=== PATIENT | female | born 1975 | race Caucasian/White ===

== ENCOUNTER 2022-06-08 11:10 | Emergency (ER) | payer SELFPAY ==
[~2022-06-08] VITALS: Ht 157.5 cm; Wt 56.7 kg
[2022-06-08 11:29] VITALS: BP_SYST 96
--- NOTE | 2022-06-08 12:09 | NUR ---
Patient triaged and placed in waiting room. VSS and patient appears in no acute distress at this time. Accompanied by staff, awaiting available bed, and Dr. Jillian MD notified of need for MSE.
--- NOTE | 2022-06-08 12:50 | NUR ---
Went to look for pt but pt no where to be found. Dr. Walsh called for pt multiple times but pt not answering. Checked in lobby, waiting room, bathroom, and parking lot but did not find pt. Will recheck for pt.
--- NOTE | 2022-06-08 13:30 | NUR ---
Went to look for pt again but still cannot find pt. Pt no where to be found. Checked in lobby, waiting room, bathrooms, and parking lot but still cannot find pt. Dr. Walsh made aware.
--- NOTE | 2022-06-08 14:42 | NUR ---
Patient left without being seen.
== END 2022-06-08 14:42 | disposition left against medical advice (07) ==
LOC: SED 11:10
DX: H92.09 Otalgia, unspecified ear (principal); R05.9 Cough, unspecified; Z53.21 Procedure and treatment not carried out due to patient leaving prior to being seen by health care provider